=== PATIENT | female | born 1965 | race Hispanic/Latino ===

== ENCOUNTER 2018-06-12 11:00 | Outpatient (CLI) | payer OTHER | END 2018-06-12 11:01 | disposition home or self-care (01) | LOC: BICMAMMO 11:00 | PROVIDERS: ATTEND Nurse Practitioner Family | DX: Z12.31 Encounter for screening mammogram for malignant neoplasm of breast (principal) | CPT/HCPCS: 77063; 77067 ==

== ENCOUNTER 2018-06-17 13:00 | Outpatient (CLI) | payer OTHER | END 2018-06-17 13:01 | disposition home or self-care (01) | LOC: BICMAMMO 13:00 | PROVIDERS: ATTEND Nurse Practitioner Family | DX: R92.2 Inconclusive mammogram (principal); N63.20 Unspecified lump in the left breast, unspecified quadrant | CPT/HCPCS: G0279 ==

== ENCOUNTER 2018-11-29 08:59 | Outpatient (CLI) | payer OTHER, SELFPAY ==
--- NOTE | 2018-11-29 11:10 | ULT ---
SONOGRAM LEFT BREAST LIMITED: Date: 11/29/18 HISTORY: Left breast cyst. COMPARISON: 06/17/18. FINDINGS: Evaluation of the 7 o'clock anterior aspect of left breast shows scattered fibroglandular densities. A septated 0.4 cm cyst with posterior acoustic shadowing is again demonstrated. No solid masses. No n ew abnormalities. IMPRESSION: BIRADS Category 2 - Benign findings. Suggest routine mammographic follow-up. POS: [place]
== END 2018-11-29 09:00 | disposition home or self-care (01) ==
LOC: BICMAMMO 08:59
PROVIDERS: ATTEND Nurse Practitioner Family
DX: R92.8 Other abnormal and inconclusive findings on diagnostic imaging of breast (principal); N63.20 Unspecified lump in the left breast, unspecified quadrant
CPT/HCPCS: G0279

== ENCOUNTER 2021-09-27 09:09 | Outpatient (CLI) | payer BC | END 2021-09-27 09:10 | disposition home or self-care (01) | LOC: BICMAMMO 09:09 | PROVIDERS: ATTEND Nurse Practitioner Family | DX: Z12.31 Encounter for screening mammogram for malignant neoplasm of breast (principal) | CPT/HCPCS: 77063; 77067 ==

== ENCOUNTER 2023-05-07 10:40 | Outpatient (CLI) | payer BC | END 2023-05-07 10:41 | disposition home or self-care (01) | LOC: BICMAMMO 10:40 | PROVIDERS: ATTEND Nurse Practitioner Family | DX: Z12.31 Encounter for screening mammogram for malignant neoplasm of breast (principal); N64.89 Other specified disorders of breast | CPT/HCPCS: 77063; 77067 ==

== ENCOUNTER 2023-06-27 08:19 | Outpatient (CLI) | payer OTHER | END 2023-06-27 08:20 | disposition home or self-care (01) | LOC: BICMAMMO 08:19 | PROVIDERS: ATTEND Nurse Practitioner Family | DX: N64.89 Other specified disorders of breast (principal) | CPT/HCPCS: G0279 ==